=== PATIENT | male | born 1995 | race Caucasian/White ===

== ENCOUNTER 2019-01-31 00:06 | Emergency (ER) | payer SELFPAY ==
[2019-01-31] MEDS ORDERED: IBUPROFEN 600 MG TABLET PO ONE (00:50)
[2019-01-31] MEDS ORDERED: DIPH/PERTUSS(ACELL)/TETANUS VAC/PF 0.5 ML SYR (>=10YO) IM ONE (00:50)
--- NOTE | 2019-01-31 01:26 | RADIOLOGY REPORT (SQ) ---
CLINICAL HISTORY: fall COMPARISON: None. TECHNIQUE: XR HAND 3 OR MORE VIEWS 01/31/2019 12:51 AM CDT FINDINGS: There is a mildly angulated fracture of the midshaft of the fifth metacarpal. Joint spaces are preserved. There is dorsal soft tissue swelling. IMPRESSION: Fifth metacarpal fracture.
--- NOTE | 2019-01-31 01:27 | RADIOLOGY REPORT (SQ) ---
CLINICAL HISTORY: fall COMPARISON: None. TECHNIQUE: XR HIP 2 OR MORE VIEWS 01/31/2019 12:51 AM CDT FINDINGS: There is no fracture. Joint spaces are preserved. Soft tissues are unremarkable. IMPRESSION: No acute osseous findings.
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
[2019-01-31 02:40] VITALS: BP 103/63
== END 2019-01-31 02:40 | disposition home or self-care (01) ==
LOC: ER 00:06
DX: S62.327A Displaced fracture of shaft of fifth metacarpal bone, left hand, initial encounter for closed fracture (principal); S60.812A Abrasion of left wrist, initial encounter; S50.312A Abrasion of left elbow, initial encounter; S50.311A Abrasion of right elbow, initial encounter; S60.511A Abrasion of right hand, initial encounter; S70.212A Abrasion, left hip, initial encounter; S30.810A Abrasion of lower back and pelvis, initial encounter; S80.212A Abrasion, left knee, initial encounter; V03.90XA Pedestrian on foot injured in collision with car, pick-up truck or van, unspecified whether traffic or nontraffic accident, initial encounter; F17.200 Nicotine dependence, unspecified, uncomplicated; Z23 Encounter for immunization
CPT/HCPCS: 90471; 90715; 99283